=== PATIENT | male | born 1985 | race Caucasian/White ===

== ENCOUNTER 2022-12-09 10:47 | Emergency (ER) | payer SELFPAY ==
[2022-12-09] MEDS ORDERED: Ketorolac Tromethamine 30 MG/ML VIAL ONE (11:11)
== END 2022-12-09 11:29 | disposition home or self-care (01) ==
LOC: ERS 10:47
DX: M79.662 Pain in left lower leg (principal)
CPT/HCPCS: 96372; J1885

== ENCOUNTER 2022-12-13 11:15 | Emergency (ER) | payer SELFPAY | END 2022-12-13 11:40 | disposition left against medical advice (07) | LOC: ERS 11:15 | DX: Z53.21 Procedure and treatment not carried out due to patient leaving prior to being seen by health care provider (principal) ==